=== PATIENT | male | born 1995 | race African-American/Black ===

== ENCOUNTER 2018-03-27 16:28 | Emergency (ER) | payer MEDICAID, OTHER ==
[~2018-03-27] VITALS: Ht 193 cm; Wt 83.9 kg
[~2018-03-27 16:28] MED LIST: AGM875T PO; CALC-146 PO; CALC-722 PO; CALC-80; CALC0.5C2 PO; CALC1TAB38 PO; CHOL10003 PO; CITRACAL PO; CLD600T PO; HCTZ12.5T PO; HYDR12.56 PO; LISD40CA3 PO; MAGN100T3 PO; MAGN400T6 PO; [UNRECOGNIZED DRUG - OTHER] PO
--- OUTSIDE RECORDS SUMMARY | 2018-03-27 16:34 | XMS REPORT | Continuity of Care Document ---
Demographics Preferred Language Unknown Marital Status Unknown Muslim Affiliation Unknown Race Unknown Ethnic Group Unknown Author Author Formerly [facility], [facility] Address Unknown Phone Unavailable Allergies Active Description Code Type Severity Reaction Onset Reported/Identified Relationship to Patient Clinical Status Yes NKANo Known Allergies NKA Miscellaneous Allergy Mild N/A 10/22/2009 Medications There is no data. Problems Date Dx Coded Attending Type Code Diagnosis Diagnosed By 01/29/2010 Ot 275.41 04/30/2010 Ot 873.43 04/30/2010 Ot E000.8 04/30/2010 Ot E002.0 04/30/2010 Ot E849.4 04/30/2010 Ot E917.9 11/28/2010 Ot 275.41 12/03/2010 Ot 253.2 12/03/2010 Ot 275.41 04/27/2011 Ot 244.9 06/13/2011 Ot 252.1 06/13/2011 Ot 275.2 06/13/2011 Ot 275.3 06/13/2011 Ot 275.41 06/13/2011 Ot 493.90 06/13/2011 Ot 790.6 11/20/2011 Ot 252.1 05/02/2012 Ot 252.1 05/23/2012 Ot 252.1 05/23/2012 Ot 275.3 05/23/2012 Ot 275.41 11/18/2012 Ot 252.1 11/18/2012 Ot V04.81 04/24/2013 ARON VALENZUELA MD Ot 252.1 04/24/2013 ARON VALENZUELA MD Ot 275.41 06/10/2013 ARON VALENZUELA MD Ot 252.1 06/10/2013 ARON VALENZUELA MD Ot 314.00 11/04/2013 ARON VALENZUELA MD Ot 252.1 11/04/2013 ARON VALENZUELA MD Ot 275.2 11/04/2013 ARON VALENZUELA MD Ot 276.8 11/04/2013 ARON VALENZUELA MD Ot 314.00 12/01/2013 AMANDO MCDERMOTT APRN Ot 786.6 04/13/2015 Ot 275.41 04/13/2015 Ot 252.1 04/13/2015 Ot 252.1 04/13/2015 Ot 276.8 04/13/2015 Ot 275.41 04/13/2015 Ot 252.1 04/13/2015 Ot 252.1 04/13/2015 Ot 729.5 04/13/2015 Ot 959.7 04/13/2015 Ot E000.8 04/13/2015 Ot E007.6 04/13/2015 Ot E928.9 04/13/2015 Ot 275.41 04/28/2015 AMINAH BALTAZAR, JONNY Ot 252.1 10/12/2015 AMINAH BALTAZAR, JONNY Ot 252.1 10/12/2015 Ot 252.1 10/12/2015 Ot 276.8 10/12/2015 Ot 275.41 10/12/2015 Ot 252.1 10/12/2015 Ot 252.1 10/12/2015 Ot 729.5 10/12/2015 Ot 959.7 10/12/2015 Ot E000.8 10/12/2015 Ot E007.6 10/12/2015 Ot E928.9 10/12/2015 Ot 275.41 10/12/2015 AMINAH BALTAZAR, JONNY Ot 252.1 10/13/2015 NICOLAS BALTAZAR, ARON Verdugo Ot E20.9 Procedures There is no data. Results There is no data. Encounters ACCT No. Visit Date/Time Discharge Status Pt. Type Provider Facility Loc./Unit Complaint [id number] 02/12/2013 10:16:18 [id number] 04/13/2015 15:13:24 ACT Document Registration [id number] 10/12/2015 23:15:00 10/13/2015 17:24:00 DIS Inpatient ARON VALENZUELA MD [address] [id number] 04/13/2015 15:12:00 04/13/2015 23:59:59 CLS Outpatient JONNY BURR MD Via [facility] [id number] 12/01/2013 20:49:00 12/01/2013 21:50:00 DIS Emergency AMANDO MCDERMOTT APRN Via [facility] ER [id number] 11/02/2013 23:55:00 11/04/2013 17:05:00 DIS Inpatient ARON VALENZUELA MD Via [facility] 4TH [id number] 06/09/2013 23:36:00 06/10/2013 22:40:00 DIS Inpatient ARON VALENZUELA MD Via [address] [id number] 04/23/2013 12:20:00 04/24/2013 16:10:00 DIS Inpatient ARON VALENZUELA MD Via [address] [id number] 04/13/2015 15:12:00 Document Registration [id number] 04/13/2015 15:12:00 Document Registration [id number] 04/13/2015 15:12:00 Document Registration [id number] 04/13/2015 15:12:00 Document Registration [id number] 04/13/2015 15:11:00 Document Registration [id number] 12/06/2012 17:40:00 Document Registration [id number] 11/17/2012 12:50:00 Document Registration [id number] 09/25/2012 09:51:00 Document Registration [id number] 05/22/2012 02:20:00 Document Registration [id number] 05/01/2012 23:30:00 Document Registration [id number] 06/11/2011 23:30:00 Document Registration [id number] 01/28/2011 16:14:00 Document Registration [id number] 12/04/2010 10:32:00 Document Registration [id number] 12/02/2010 22:52:00 Document Registration [id number] 11/01/2010 13:24:00 Document Registration [id number] 05/28/2010 10:40:00 Document Registration [id number] 04/30/2010 16:59:00 Document Registration [id number] 16:14:00 Document Registration [id number] 11/09/2009 15:52:00 Document Registration [id number] 11/04/2009 11:44:00 Document Registration
[2018-03-27] MEDS ORDERED: ACETAMINOPHEN 500 MG TAB (TYLENOL) PO ONE (17:45)
--- NOTE | 2018-03-27 18:03 | Diagnostic Imaging Report ---
INDICATION: Fall with left wrist injury. TIME OF EXAM: 06:14 p.m. FINDINGS: Three views of the left wrist demonstrate the distal radius and ulna to be intact. The carpus is intact. Metacarpals are unremarkable. No fractures are seen. IMPRESSION: No acute bony abnormality is detected. Dictated by: Dictated on workstation # [id number]
--- NOTE | 2018-03-27 19:07 | Diagnostic Imaging Report ---
INDICATION: Fall with pain across the digits. Time of exam: 7:11 PM 3 views of the left hand were obtained. The metacarpals are intact. The phalanges appear intact. No fractures are seen. Soft tissues are unremarkable. IMPRESSION: No acute bony abnormality is detected. Dictated by: Dictated on workstation # [id number]
[2018-03-27 19:22] VITALS: BP 136/85
--- NOTE | 2018-03-27 19:22 | ED Upper Extremity ---
General Chief Complaint: Upper Extremity Stated Complaint: LEFT ARM INJ Nursing Triage Note: PATIENT STATES THAT WHILE WORKING AT [employer] HE FELL OFF A PALLET OF [employer] - [employer]OX 5 FT HIGH ONTO THE GROUND. LANDED ON HIS LEFT ARM. PAIN AND SWELLING TO LEFT WRIST. UNABLE TO CLENCH HIS FIST. CAN WIGGLE FINGERS. UNABLE TO MOVE WRIST WITHOUT PAIN. Nursing Sepsis Screen: No Definite Risk Source: patient Exam Limitations: no limitations History of Present Illness Date Seen by Provider: March 27, 2018 Time Seen by Provider: 17:35 Initial Comments History as above reiterated by patient during interview. Incident happened around noon today. He has not taken any medications for the pain. He denies any other injuries. Allergies and Home Medications Allergies Coded Allergies: NKANo Known Allergies (Unverified Allergy, Mild, 10/22/09) Home Medications Calcitriol 0.5 Mcg Capsule, 2 MCG PO BID, (Reported) LAST FILLED #240 4-21-15 TAKES 4 (0.5 MCG) CAPSULES Calcium Carb & Citrate/Vit D3 1 Each Tablet.er, 8 TAB PO BID, (Reported) Magnesium Oxide 400 Mg Tablet, 400 MG PO BID, (Reported) Patient Home Medication List Home Medication List Reviewed: Yes Constitutional: no symptoms reported EENTM: no symptoms reported Respiratory: no symptoms reported Cardiovascular: no symptoms reported Gastrointestinal: no symptoms reported Genitourinary: no symptoms reported Musculoskeletal: see HPI Skin: no symptoms reported Psychiatric/Neurological: No Symptoms Reported Past Fpvsrwt-Rfinap-Aosfbi Hx Past Med/Social Hx: Reviewed and Corrections made Patient Social History Alcohol Use: Denies Use Recreational Drug Use: No Smoking Status: Never a Smoker 2nd Hand Smoke Exposure: No Recent Foreign Travel: No Contact w/Someone Who Travel: No Recent Infectious Disease Expo: No Recent Hopitalizations: Yes (nov, 2011) Physical Abuse: No Sexual Abuse: No Immunizations Up To Date Tetanus Booster (TDap): Less than 5yrs PED Vaccines UTD: Yes Date of Pneumonia Vaccine: Aug 06, 2012 Date of Influenza Vaccine: Oct 13, 2015 Seasonal Allergies Seasonal Allergies: Yes Past Medical History Surgeries: Yes (Hernia repair shortly after ) Abdominal Respiratory: Yes Asthma Cardiac: No Neurological: No Reproductive Disorders: No Gastrointestinal: No Musculoskeletal: Yes (due to hyprparathyroidism) Spasms Endocrine: Yes (HYPOPARATHYROIDISM, HYPOCALCEMIA) Parathyroid Disease Cancer: No Psychosocial: Yes ADD/ADHD Nursing Suicide Risk Score: 0 Integumentary: No Blood Disorders: No Adverse Reaction/Blood Tranf: No Family Medical History No Family History of: Abdominal aortic aneurysm [place]'s disease Alcoholism Aphasia Cancer Cancer of colon Cataract Chest pain Congenital heart disease Congestive heart failure Cystic fibrosis Dementia Dysphagia Family history: Allergy Family history: Alzheimer's disease Family history: Arthritis Family history: Asthma Family history: Breast disease Family history: Cardiovascular disease Family history: Coronary thrombosis Family history: Diabetes mellitus Family history: Gastrointestinal disease Family history: Glaucoma Family history: Hypertension Family history: Osteoporosis Family history: Thyroid disorder Headache Hearing loss Heart disease Hereditary disease History of - anemia History of - disorder History of - respiratory disease History of drug abuse Human immunodeficiency virus (HIV) seropositivity Hypercholesterolemia Infertile Kidney disease Malignant neoplasm of lung Myocardial infarction Parkinson's disease Prostate cancer Psychotic disorder Seizure disorder Stroke Tuberculosis Visual impairment No Pertinent Family Hx Physical Exam Vital Signs Vital Signs - First Documented 03/27/18 17:20 Temp 98.3 Pulse 65 Resp 18 B/P (MAP) 136/85 (102) Pulse Ox 97 Capillary Refill : Less Than 3 Seconds General Appearance: WD/WN, mild distress HEENT: normal ENT inspection Neck: normal inspection Respiratory: normal breath sounds, no respiratory distress Shoulder: normal inspection, non-tender, no evidence of injury, normal ROM Elbow/Forearm: normal inspection, non-tender, no evidence of injury, normal ROM , Left Wrist: Yes bone tenderness (Primarily focused around the central wrist with some more mild tenderness over the metacarpals), Yes limited ROM, Yes swelling Hand: normal inspection, normal ROM, Left, bone tenderness Neurologic/Tendon: normal sensation, normal motor functions 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 Wrist x-ray was discussed with the radiologist and showed no obvious injury. Patient was reexamined. Additional views were ordered with a hand x-ray. Still no acute bony injuries were identified. Patient was placed in an AlumaFoam splint. Occupational health paperwork was completed. Diagnostic Imaging Diagonstic Imaging: Xray Plain Films/CT/US/NM/MRI: hand Comments Hand x-ray viewed by me and report reviewed. See report below: NAME: JOANN SIMS [facility] REC#: [id number] PT STATUS: REG ER : 1995 PHYSICIAN: ROBINSON GUTIERREZ MD ADMIT DATE: 03/27/18/ER Signed Date of Exam: 03/27/18 HAND, LEFT, 3 VIEWS INDICATION: Fall with pain across the digits. Time of exam: 7:11 PM 3 views of the left hand were obtained. The metacarpals are intact. The phalanges appear intact. No fractures are seen. Soft tissues are unremarkable. IMPRESSION: No acute bony abnormality is detected. Dictated by: Dictated on workstation # [id number] Dict: 03/27/181903 Trans: 03/27/181911 Interpreted by: KARLA CHISHOLM MD Electronically signed by: KARLA CHISHOLM MD 03/27/181911 Diagonstic Imaging: Xray Comments Wrist x-ray viewed by me and report reviewed. Discussed with radiologist. See report below: NAME: JOANN SIMS [facility] REC#: [id number] PT STATUS: REG ER : 1995 PHYSICIAN: ROBINSON GUTIERREZ MD ADMIT DATE: 03/27/18/ER Signed Date of Exam: 03/27/18 WRIST, LEFT, 3 VIEWS OR MORE INDICATION: Fall with left wrist injury. TIME OF EXAM: 06:14 p.m. FINDINGS: Three views of the left wrist demonstrate the distal radius and ulna to be intact. The carpus is intact. Metacarpals are unremarkable. No fractures are seen. IMPRESSION: No acute bony abnormality is detected. Dictated by: Dictated on workstation # [id number] Dict: 03/27/18 1759 Trans: 03/27/181812 Interpreted by: KARLA CHISHOLM MD Electronically signed by: KARLA CHISHOLM MD 03/27/181812 Departure Impression Primary Impression: Left wrist injury Qualified Codes: S69.92XA - Unspecified injury of left wrist, hand and finger( s), initial encounter Additional Impressions: Injury of left hand Qualified Codes: S69.92XA - Unspecified injury of left wrist, hand and finger( s), initial encounter Fall from height of greater than 3 feet Disposition: 01 HOME, SELF-CARE Condition: Improved Departure-Patient Inst. Decision time for Depature: 19:00 Referrals: NO,LOCAL PHYSICIAN (PCP) Primary Care Physician Patient Instructions: Wrist Sprain (DC) Add. Discharge Instructions: Use the splint as needed for comfort. Take ibuprofen up to 600 mg every 6 hours as needed for pain. Add Tylenol ( acetaminophen) up to 1000 mg every 6 hours as needed for additional pain relief. Elevate and ice in 20 minute intervals as needed to reduce pain and swelling. Return to care if you have further complications. If desired, you may obtain a more comfortable and functional wrist splint from the store. All discharge instructions reviewed with patient and/or family. Voiced understanding. ROBINSON GUTIERREZ MD March 27, 2018 19:22
== END 2018-03-27 19:32 | disposition home or self-care (01) ==
LOC: EDUNIT# 16:28 → ER 16:30
DX: S69.92XA Unspecified injury of left wrist, hand and finger(s), initial encounter (principal); J45.909 Unspecified asthma, uncomplicated; E05.90 Thyrotoxicosis, unspecified without thyrotoxic crisis or storm; F90.9 Attention-deficit hyperactivity disorder, unspecified type; Z80.0 Family history of malignant neoplasm of digestive organs; Z82.49 Family history of ischemic heart disease and other diseases of the circulatory system; Z87.19 Personal history of other diseases of the digestive system; Z85.46 Personal history of malignant neoplasm of prostate; W17.89XA Other fall from one level to another, initial encounter
CPT/HCPCS: 73110; 73130